=== PATIENT | female | born 1975 | race Caucasian/White ===

== ENCOUNTER 2016-08-12 20:43 | Emergency (ER) | payer SELFPAY ==
[~2016-08-12] VITALS: Ht 160 cm; Wt 59.1 kg
[2016-08-12] MEDS ORDERED: HydrOXYzine PAMOATE 50 MG CAPSULE PO ONE (23:00)
[2016-08-12] MEDS ORDERED: IBUPROFEN 600 MG TABLET PO ONE (23:00)
[2016-08-12 23:33] VITALS: BP 129/81
== END 2016-08-12 23:37 | disposition home or self-care (01) ==
LOC: EMS 20:47
DX: S06.0X9A Concussion with loss of consciousness of unspecified duration, initial encounter (principal); F41.9 Anxiety disorder, unspecified; Y08.89XA Assault by other specified means, initial encounter; Y93.89 Activity, other specified; Y92.89 Other specified places as the place of occurrence of the external cause; Y99.8 Other external cause status
CPT/HCPCS: 99283